=== PATIENT | female | born 1945 | race Caucasian/White ===

== ENCOUNTER 2022-01-02 15:04 | Outpatient (REF) | payer MEDICARE, OTHER, SELFPAY ==
[2022-01-02 16:30] LABS: Erythrocyte Sedimentation Rate 6 MM/HR (0-20)
[2022-01-03 07:07] LABS: Syphilis Screen Nonreactive (Nonreactive)
[2022-01-04 09:07] LABS: Lyme Abs Screen <0.90 index
[2022-01-08 12:56] LABS: Cardiolipin IgG Ab <2.0 GPL-U/mL; Cardiolipin IgM Ab <2.0 MPL-U/mL
[2022-01-12 21:11] LABS: Factor V Leiden NEGATIVE
== END 2022-01-02 15:05 | disposition home or self-care (01) ==
LOC: HO.LAB 15:04
PROVIDERS: Visit Provider Psychiatry & Neurology Neurology
DX: I67.9 Cerebrovascular disease, unspecified (principal)
CPT/HCPCS: 36415; 81241; 85652; 86147; 86617; 86618; 86780